=== PATIENT | male | born 1945 | race Caucasian/White ===

== ENCOUNTER 2020-09-27 12:08 | Outpatient (CLI) | payer MEDICARE ==
--- NOTE | 2020-09-27 13:02 | ULT ---
Exam: Bilateral renal ultrasound HISTORY: Chronic kidney disease COMPARISON: None FINDINGS: Right kidney: Normal cortical echotexture. Echogenic 1 cm focus in the right renal cortex likely repr esenting a nonobstructing calculus No hydronephrosis. Right kidney measurements: 10.6 x 5.1 x 5.8 cm. Left kidney: Normal cortical echotexture. No hydronephrosis Left kidney measurements 13.5 x 5.9 x 8.2 cm. Urinary bladder: Normal appearing bladder mucosal. Bilateral ureteral jets are identified. Post void residual of 80 mL. IMPRESSION: No hydronephrosis..
== END 2020-09-27 12:09 | disposition home or self-care (01) ==
LOC: BICULT 12:08
PROVIDERS: ATTEND Internal Medicine Nephrology
DX: N18.30 Chronic kidney disease, stage 3 unspecified (principal)
CPT/HCPCS: 76770